=== PATIENT | female | born 1950 | race Caucasian/White ===

== ENCOUNTER 2025-03-18 16:19 | Emergency (ER) | payer MEDICARE, SELFPAY ==
--- NOTE | ~2025-03-18 | XR_ITS ---
HISTORY: injury foot/ankle, lateral pain COMPARISON: None TECHNIQUE: 3 views of the right foot were performed FINDINGS: Nondisplaced fracture of the base of the fifth metatarsal. Overlying soft tissue swelling is noted. Trace degenerative disease is noted. No calcaneal spur is noted. IMPRESSION: Nondisplaced fracture of the base of the fifth metatarsal is suspected for which clinica l correlation regarding point tenderness is needed. Reviewed, dictated and finalized at location A. IMPRESSION: Nondisplaced fracture of the base of the fifth metatarsal is suspe cted for which clinical correlation regarding point tenderness is needed.
[2025-03-18 16:20] VITALS: BP 116/72; PULSE 69; RESP 16; TEMP 36.6; O2SAT 98
--- OUTSIDE RECORDS SUMMARY | 2025-03-18 16:21 | XMS_ITS | Clinical Summary ---
Author Organization [facility] Address [address] [place] [address] Care Team Providers Care Adjunct Latin Professor Name Role Phone Chelle Vela MD Primary Care Pr ovider Allergies Active Allergy Reactions Criticality Noted Date Comments Hydrocodone-Acetaminophen Nausea and Vomiting Low 1 Oxycodone-Acetaminophen Nausea and Vomiting Low 04/2021 Medications calcium carbonate/vitam in D3 (CALCIUM 500 + D ORAL) calcium Active Multivitamin Capsule multivitamin Active cholecalciferol , vitamin D3, 1,000 unit Take 1,000 Units by mouth daily. 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 Encounters Date Type Department Care Team Description 03/03/2025 7:45 AM CDT Procedure visit [facility] AT [address] [place] [address] Syncope, unspecified syncope type (Primary Dx); Presence of cardiac device 02/15/2025 External Device Data STL ABSTRACTION Provider, Abstract 01/31/2025 9:15 AM CDT Procedure visit [facility] AT [address] [place] [address] Syncope, unspecified syncope type (Primary Dx); Presence of cardiac device 12/31/2024 7:45 AM CDT Procedure visit [facility] AT [address] [place] [address] Syncope, unspecified syncope type (Primary Dx); Presence of cardiac device from Last 3 Months Family History Medical History Relation Name Comments Dementia Mother Pacemaker Mother Dementia Sister 1 Ovarian Cancer Sister 2 Parkinson's Disease Sister 3 Relation Name Status Comments Father (Age 30) accident Mother (Age 83) Sister 1 (Age 73) demetia Sister 2 Alive Sister 3 Alive Social History Tobacco Use Types Packs/Day Years Used Date Smoking Tobacco: Former Cigarettes 0.5 5 1 975 - 8436 Tobacco Cessation:Counseling Given: Not Answered Alcohol Use Standard Drinks/Week Comments Yes 14 (1 standard drink = 0.6 oz pu re alcohol) Comments Unknown Sex and Gender Information Value Date Recorded Sex Assigned at Not on file Legal Sex Female 1:22 PM CDT Gender Identity Not on file Sexual Orientation Not on file Last Filed Vital Signs Vital Sign Reading Time Taken Comments Blood Pressure 112/64 10/22/2024 9:13 AM FIELD APPLICATIONS SPECIALIST Pulse 76 10/22/2024 9:13 AM FIELD APPLICATIONS SPECIALIST Temperature 36.3 C (97.3 F) 11/09/2021 9:45 AM FIELD APPLICATIONS SPECIALIST Respiratory Rate - - Oxygen Saturation 99% 10/22/2024 9:13 AM FIELD APPLICATIONS SPECIALIST Inhaled Oxygen Concentration - - Weight 59 kg (130 lb) 10/22/2024 9:13 AM FIELD APPLICATIONS SPECIALIST Height 168.9 cm (5' 6.5) 10/22/2024 9:13 AM FIELD APPLICATIONS SPECIALIST Body Mass Index 20.67 10/22/2024 9:13 AM FIELD APPLICATIONS SPECIALIST Plan of Treatment Upcoming Encounters Date Type Department Care Team (Late st Contact Info) Description 04/03/2025 8:00 AM CDT Procedure visit [facility] AT [address] [place] [address] 05/04/2025 7:15 AM CDT Procedure visit [facility] AT [address] [place] [address] 10/28/2025 9:30 AM FIELD APPLICATIONS SPECIALIST Office Visit [facility] [address] [place] [id number] El Yañez MD [address] [place] [address] Health Maintenance Due Date Last Done Comments FIT-DNA Q 3 years 1995 FIT/FOBT Q 1 year 1995 Flex Sig/CT Colonography Q 5 years 1995 PNEUMOCOCCAL VACCINE 50+ YEA RS (1 of 1 - PCV) 2000 ZOSTER VACCINE (1 of 2) 2000 INFLUENZA VACCINE (#1) 2025 07/06/2019, 2017 BREAST CANCER SCREENING 05/10/2025 05/10/20, 05/10/2024, 05/09/2023, Additional history exists RSV VACCINE (60+ or ) (1 - 1-dose 75+ series) 2025 DTAP/TDAP/TD VACCINES (2 - T d or Tdap) 10/12/2027 10/12/2017 OSTEOPOROSIS SCREENING 05/09/2028 , 05/09/2023, 03/08/2021 COLORECTAL SCREENING 06/25/2033 06/25/2023 Colorectal Cancer Screening 06/25/2033 Medical Devices Implanted Type Area Bulk Intake Worker Device Identifier Shelf Expiration Date Model / Serial / Lot Monitor Heart Linq Ii Icm Reveal Cardiac [id number] - [id number] Implanted:Qt y: 1 on 12/11/2021 by Alcon Vines MD at [facility] Cardiovascular Device Left: Chest MEDTRONIC- CARD RHYTHM MGMT 03/14/2023 [id number] / [id number] / Procedures Procedure Name Priority Date/Time Associated Diagnosis Comments WA REM INTERROG SCRMS <30 D PHYS/QHP Routine 03/03/2025 2:42 PM CDT Syncope, unspecified syncope type Presence of cardiac device WA REM INTERROG SCRMS <30 D PHYS/QHP Routine 01/31/2025 2:57 PM CDT Syncope, unspecified syncope type Presence of cardiac device WA REM INTERROG SCRMS <30 D PHYS/QHP Routine 12/31/2024 2:42 PM CDT Syncope, unspecified syncope type Presence of cardiac device from Last 3 Months Results * WA REM INTERROG SCRMS <30 D PHYS/QHP (03/03/2025 2:42 PM CDT) Only the most recent of3 resultswithin the time period is included. 03/03/2025 2:42 PM CDT Narrative INTERFACE SYSTEM - 03/04/2025 7:26 AM CDT Loop recorder Transmission: 31 day summary report: 01/31/2025 - 03/03/2025 Presenting Rhythm: Sinus Rhythm No episodes noted. Results sent via [employer] Procedure Note Provider, Historical - 03/04/2025 Loop recorder Transmission: 31 day summary report: 01/31/2025 - 03/03/2025 Presenting Rhythm: Sinus Rhythm No episodes noted. Results sent via [employer] us El Yañez MD CARDIAC SERVICES ORDERABLES E dited Result - Final INTERFACE SYSTEM Refer to clinic/hospital department from Last [address] [place] [id number] Advance Directives For more information, please contact: [phone] * Full Code (Latest Code Status on File) Date Activated Date Inactivated Comments 12/11/2021 1:25 PM 12/11/2021 5:00 PM Care Teams Adjunct Latin Professor Relationship Specialty Start Date End Date Chelle Vela MD [address] [place] [phone] PCP - General Family Practice 06/05/21
--- OUTSIDE RECORDS SUMMARY | 2025-03-18 16:21 | XMS_ITS | Data Portability ---
Author Organization [facility] Main Office Address [address] [place] [address] Care Team Providers Care Platen Press Operator Name Role Phone JOSH CORDOVA Primary Care Provider [phone] JOSH CORDOVA Referring Provider Assessment Encounter Date Assessment Date Assessment LastModified by Organization Details LastModified Time 04/04/2023 04/04/2023 Impression: Patient has evidence of trochanteric bursitis left hip and distal iliotibial band tendinitis at the knee. I recommended she make sure she is wearing shoes that have ample arch support to prevent over pronation with her longer walks. She does purchase well may choose but may wish to obtain a pair with that specific function mind or consider arch supports. I recommended a course of physical therapy for her for IT band stretching abductor strengthening and I at of her ESAs ultrasound sometimes be helpful. We talked about trying an anti-inflammator y medication to decrease inflammation and will prescribe meloxicam 15 mg daily for 30 days and then stop. She will avoid any additional anti-inflammator y medications while she is taking this. Risks of possible side effects were discussed inches skin is fracture she describing possible side effects of anti-inflammator y medication use. She has no history of kidney or liver or peptic ulcer disease. I have recommended give up the walking for exercise for the next 6 weeks to let this rest. If this fails to give her adequate relief 1 could also consider she use a heel lift under the slightly shorter right leg chronically which will tend to decrease tension on the iliotibial band. 45 minutes were spent total care this patient more than half the time spent in pqoc-fr-jxab care. [email or web address] Not available 04/05/2023 14:02:16 04/07/2023 04/07/2023 HPI: Patient returns. Her left index finger started triggering again. It started about a month ago. She had a cortisone injection 10 months ago which worked great up until 4 weeks ago. She wished to have a 2nd injection. She does not wish to discuss surgery yet. She has had 5 other trigger fingers released in her hands in the past. She is aware the surgery recovery. Physical exam: 72-year-old female alert pleasant. She has moderate tenderness over the A1 christo of the left index finger. She has mild triggering with range of motion. She has full extension of the finger. ChloraPrep was used on skin 5 mg Kenalog and 1 cc of 0.5% ropivacaine was injected into the A1 christo of the left index finger. Impression: 72-year-old female who has had recurrence of her left index trigger finger. She has had 2 shots now advised her that if she has recurrence of the triggering surgery room would be next step. Multiple injections can cause softening of tendon And tendon rupture. She will keep that in mind. She will follow up as needed. [email or web address] Not available 04/07/2023 15:21:56 Plan of Treatment Reminders Order Date Submit Date Provider Last Modified By Organization Details Last Modified Time Details Appointments None recorded. Lab None recorded. Referral physical therapist referral 2022 023 [email or web address] Not available 16:32:50 Procedures injection/a spiration joint/bursa (PROC) - in office procedure, administere d by provider 2022 023 [email or web address] In-Office Order, Internal Use Only DO Not Attach Compendium DO Not Attach Compendium, Do Not Delete/merge, [id number] 14:57:20 Surgeries None recorded. Imaging XR, knee 2022 023 [email or web address] [facility] [place], [address], [place], [address], 3 09:35:41 XR, hip + pelvis, unilateral 2022 023 [email or web address] [facility] [place], [address], [place], [address], 3 09:35:41 Medication Orders Kenalog 10 mg/mL suspension for injection [address]/[facility]armacy #[id number], [address] [place] [address], [address], 3 16:44:49 ropivacaine (PF) 5 mg/mL (0.5 %) injection solution [address]/[facility]acy #[id number], [address] [place] [address], [address], 3 16:44:49 meloxicam 15 mg tablet [address]/Pharmacy #[id number], [address] [place] [address], [address], 3 11:30:58 Patient TargetsNo targets recorded. Patient InstructionsNo instructions recorded. Reason for Referral Physical Therapist Referral for Pain of left knee joint Referring Physician: Stanislaw Be, Orthopedic Surgery, Encounter Date: 04/04/2023 Results Created Date Observation Date Name Description Value Unit Range Abnormal Flag Note LastModifiedBy Organization Detail LastModifiedTime 07/23/[address] wrist wo contr ast left [facility] [address] [address] [phone] Patien t Name: PINO GERONIMO Access ion #: [id number] Sex: F : 1949 9 8 Locati on: RA2 Attend ing Physic carmen: STANISLAW FERNANDO Orderi ng Physic carmen: STANISLAW FERNANDO Exam Date: 021 3:32 PM Exam Name: CT WRIST LT WO Admitt ing Diagno sis(es ): RADIOL OGY REPORT - FINAL EXAM: CT WRIST LT WO HISTOR Y: pain follow -up fractu re COMPAR CONCEPCION: Wrist radiog raphs 2020 and MRI of the wrist dated 2020 TECHNI QUE: Multip le contig uous thin sectio n axial images of the wrist were obtain ed with rush l and sagitt al reform ations . No contra st was utiliz ed. This CT exam was perfor med using one or more of the follow ing dose reduct ion techni ques: Automa ko exposu re contro l, adjust ment of the mA and/or kv accord ing to patien t size, or the use of iterat renetta recons tructi on techni ques. FINDIN GS: No displa jazmín fractu re is noted. There is some cortic al irregu larity noted at the radial aspect of the scapho id with a small bhanu of bone. No displa jazmín Page 1 of 2 [facility] Pati t Name: PINO GERONIMO Access ion #: [id number] Sex: F : 1949 9 8 Exam Date: 3:32 PM Exam Name: CT WRIST LT WO Admitt ing Diagno sis(es ): fractu re is noted. The remain issac of the wrist appear s intact . IMPRES SONNY: As detail ed above. Create d and electr onical ly signed by: Johnny Trejo ch, DO Signed Date: 4:15 PM (CT) Dictat ed by: Johnny Trejo ch, DO DD: 4:15 PM (CT) DT: 4:15 PM (CT) Page 2 of 2 MIG[facility]. [facility] (Imaging) [address], [place], [address], 11/13/2022 13:31:22 07/25/20 21 XR, wrist No observ ation record ed. MIGRATION. [facility] [place] [address], [place], [address], 11/13/2022 13:31:22 09/05/20 21 XR, wrist No observ ation record ed. [email or web address]. [id number] [facility] [place] [address], [place], [address], 11/13/2022 13:31:22 05/10/20 22 05/10/2022 XR, hand No observ ation record ed. [id number] [facility] [place] [address], [place], [address], 11/13/2022 13:31:22 04/04/20 23 XR, knee No observ ation record ed. [email or web address] [facility] [place] [address], [place], [address], 04/05/2023 13:58:14 04/04/20 23 XR, hip + pelvi s, unila teral No observ ation record ed. [email or web address] [facility] [place] [address], [address], 04/05/2023 13:59:36 Result Notes None recorded. Problems Name Problem SNOMED Code Status Onset Date Resolution Date Notes Provider Name and Address Organization Details Recorded Time Pain of left hand 317401135897627 Active 2021 Not Available [facility] 3 13:29:37 Pain of right knee joint 938925805849751 Active 2021 Not Available [facility] 3 13:29:37 Pain of left knee joint 472929925509802 Active 2022 DAKOTA Bolanos null, [place] [facility] 3 08:55:04 Problem Notes None recorded. Procedures Surgical History Date Name Laterality Status Provider Name and Address Organization Details Recorded Time Carpal tunnel surgery completed Not Available [facility] 11/13/2022 13:29:18 procedure on finger completed Not Available [facility] 11/13/2022 13:29:18 section completed Not Available [facility] 11/13/2022 13:29:18 Imaging Results None recorded. Procedure Notes None recorded. Medical Equipment None Reported. Medications Name Sig Start Date Stop Date Status Note LastModified by Organization Details LastModified Time ketoconazol e 2 % shampoo APPLY TO AFFECTED AREA 2 3 TIMES WEEKLY 03/28 completed Not Available Not Available Not Available meloxicam 15 mg tablet TAKE 1 TABLET BY MOUTH EVERY DAY active Not Available Not Available No t Available prednisone 20 mg tablet TAKE 1 TABLET BY MOUTH EVERY DAY FOR 5 DAYS 03/28 completed Not Available Not Available Not Available acyclovir 400 mg tablet TAKE 1 TABLET BY MOUTH THREE TIMES A DAY FOR 7 DAYS 03/28 completed Not Available Not Available Not Available citalopram 20 mg tablet TAKE 1/2 TABLET BY MOUTH DAILY active Not Available Not Available No t Available Kenalog 10 mg/mL suspension for injection in office 2022 active [facility]NOTE 2]: 0003- 0494- 20 Not Available Not Available Not Available meclizine 25 mg tablet TAKE ONE TABLET BY MOUTH EVERY 8 HOURS NEEDED FOR DIZZINESS . 03/28 completed Not Available Not Available Not Available cephalexin 500 mg capsule TAKE 1 CAPSULE BY MOUTH 3 TIMES A DAY FOR 7 DAYS 03/28 completed Not Available Not Available Not Available acyclovir 5 % topical ointment active Not Available Not Available Not Available clobetasol 0.05 % topical ointment APPLY TOPICALLY TO THE AFFECTED AREA TWICE A DAY FOR 14 DAYS active Not Available Not Available No t Available methylpredn isolone 4 mg tablets in a dose pack TAKE 6 TABLETS ON DAY 1 DIRECTED ON PACKAGE AND DECREASE BY 1 TAB EACH DAY FOR A TOTAL OF 6 DAYS 04/04 completed Not Available Not Available Not Available amoxicillin 875 mg-potassiu m clavulanate 125 mg tablet 03/28 completed Not Available Not Available Not Available acyclovir 5 % topical cream 03/28 completed Not Available Not Available Not Available ibandronate 150 mg tablet 09/05 completed Not Available Not Available Not Available chlorhexidi ne gluconate 0.12 % mouthwash RINSE AND GARGLE 15 ML BY MOUTH OR THROAT TWICE DAILY FOR 14 DAYS DIRECTED 05/16 completed Not Available Not Available Not Available Vitamin C 2020 active Not Available Not Available Not Avai lable calcium 2020 active Not Available Not Available Not Avai lable multivitami n 2020 active Not Available Not Available Not Avai lable ropivacaine (PF) 5 mg/mL (0.5 %) injection solution in office 2022 active [facility] [place]NOTE 2] [address] -064- 01 Not Available Not Available Not Available Vitals Date Recorded Body height Provider Name an d Address Organization Details Last Updated DateTime 04/04/2023 165.1 cm DAKOTA Bolanos [facility] 04/04/2023 08:53:43 Date Recorded Body height Provider Name an d Address Organization Details Last Updated DateTime 04/07/2023 165.1 cm Christi Murphy [facility] 04/07/2023 14:54:59 Date Recorded Body mass index (BMI) Body height Body weight Provider Name and Address Organization Details Last Updated DateTime 05/10/2022 21.1 kg/m2 165.1 cm 80901.23 g Not Available [facility] 11/13/2022 13:29:23 Date Recorded Body height Provider Name an d Address Organization Details Last Updated DateTime 07/25/2021 165.1 cm Not Available [facility] 13:29:23 Date Recorded Body height Provider Name an d Address Organization Details Last Updated DateTime 09/05/2021 165.1 cm Not Available [facility] 13:29:23 Social History Question Answer Notes LastModified by [employer] Details LastModified Time Tobacco Smoking Status Never Smoker Not Available [facility] 11/13/2022 13:29:16 How Much Tobacco Do You Smoke? No [id number] Information not available 11/13/2022 Sex: Unknown Functional Status Question Answer Note LastModified by [employer] Details LastModified Time What is your level of alcohol consumption? None [id number] Information not available 11/13/2022 Mental Status None recorded. Family History Nothing Reported. Medical History No medical history recorded. Gynecological HistoryNo gynecological history recorded. Obstetrics History GPAL:G 0 P 0 0 0 0 Past Encounters Encounter ID Performer Location Encounter Start Date Encounter Closed Date Diagnosis/Indication Diagnosis SNOMED-CT Code Diagnosis ICD10 Code Diagnosis Note [id number] Stanislaw Be MD [facility] [place] [address] [place] [address] 03/28/2021 00:00:00 04/01/2021 15:28:02 [id number] Stanislaw Be MD [facility] [place] [address] [place] [address] 04/11/2021 00:00:00 04/16/2021 11:59:06 [id number] Stanislaw Be MD [facility] [place] [address] [place] [address] 05/16/2021 00:00:00 05/16/2021 14:46:15 [id number] MD DIEGO [facility] [place] [address] [place] [address] 06/11/2021 00:00:00 06/11/2021 16:53:31 [id number] MD DIEGO [facility] [place] [address] [place] [address] 06/25/2021 00:00:00 06/25/2021 15:59:46 [id number] MD DIEGO [facility] [place] [address] [place] [address] 07/25/2021 00:00:00 07/25/2021 09:36:23 [id number] MD BECCA [facility] [place] [address] [place] [address] 09/05/2021 00:00:00 09/05/2021 08:58:43 [id number] Stanislaw Be MD [facility] [place] [address] [place] [address] 05/10/2022 00:00:00 05/13/2022 13:31:50 [id number] MD BECCA [facility] [place] [address] [place] [address] 04/04/2023 08:39:40 04/07/2023 09:35:40 Pain of left knee joint 7483696224 68676 M25.562 [id number] Stanislaw Be MD [facility] [place] [address] [facility] [address] [place] [address] 04/07/2023 14:43:50 04/07/2023 15:29:21 Pain of left hand 0434588019 68071 M79.642 Health Concerns Section Related Observation LastModified by Organization Detai ls LastModified Time None Recorded Concern Status LastModified by Organization Details LastModified Time None Recorded Advance Directives Directive None Recorded Payers Insurance Date Sequence Insurance Name Policy Number Policy Lopez Covered Member ID Lopez Member ID Guarantor Name 04/10/[address] [facility] (MEDICARE REPLACEMENT/ ADVANTAGE - PPO) [id number] Debo Aleman [id number] Debo Aleman 04/04/2023 1 [employer] (MEDICARE REPLACEMENT/ ADVANTAGE - PPO) [id number] Debo Aleman [id number] Debo Aleman Notes Date Note Type Note Provider Name and Address Organization Details Recorded Time 04/04/2023 text/html patient is a 72-year-old female referred by Dr. Hudson again for evaluation of her left knee pain. Both knees actually bother her but the left is worse. She started having problems approximately 6 months ago. She complains of primarily pain laterally and anteriorly. It bothers her standing up from a seated position going up and down stairs and walking. She has tried Advil and Voltaren gel and icy Hot. Occasionally she will limp. She recalls she was in an exercise class squeezing a squeeze ball between her knees and she heard a pop in the right knee. She limb for a few days and was using her left knee to do mostly work and then she developed spontaneous pain the anterolateral aspect of the left knee. This seemed to radiate up the thigh to the anterior groin with longer walks. She complains of left knee sharp all night particularly if she walks a longer distance. She would like to walk 3 miles a day to stay fit and keep her hemoglobin A1c numbers perfect. She walks 2 miles every other day. She denies any numbness or tingling. Stanislaw Be MD [address] [place] [address], [facility] [address], [place], [address], [place] [facility] 04/05/2023 14:02:42 OBGyn Episode No OBEpisode recorded.
--- OUTSIDE RECORDS SUMMARY | 2025-03-18 16:21 | XMS_ITS | Clinical Summary ---
Author Organization [facility] Address [address] [place] [address] Care Team Providers Care Automotive Service Management Teacher Name Role Phone Chelle Jacobson MD Primary Care Provider [phone] Source Comments [facility],non-owned Affiliates and Associated Physician Practices is amultiple site organization consisting of ambulatory clinics and hospital sitesin [place], [place], [place] and [place]. This disclosure is being madepursuant to the Care Everywhere program and may not contain all information available regarding this patient. Last updated 18.[facility] Allergies No known active allergies Medications * Be aware that medications may not be up to date on this document. Alwaysverify current medications with the patient. citalopram (CELEXA) 10 MG tablet Take 10 mg by mouth once daily Active ibandronate (BONIVA) 150 MG tablet Take 150 mg by mouth every 30 days Active Social History Tobacco Use Types Packs/Day Years Used Date Smoking Tobacco: Never Smokeless Tobacco: Never Alcohol Use Standard Drinks/Week Comments Yes 0 (1 standard drink = 0.6 oz pur e alcohol) Comments Unknown Sex and Gender Information Value Date Recorded Sex Assigned at Not on file Legal Sex Female 9:12 AM CDT Gender Identity Not on file Sexual Orientation Not on file Last Filed Vital Signs Vital Sign Reading Time Taken Comments Blood Pressure 141/80 04/17/2021 12:56 PM CDT Pulse 67 04/17/2021 12:56 PM CDT Temperature - - Respiratory Rate - - Oxygen Saturation - - Inhaled Oxygen Concentration - - Weight 57.9 kg (127 lb 9.6 oz) 04/17/2021 12:56 PM CDT Height 167.6 cm (5' 6) 04/17/2021 12:56 PM CDT Body Mass Index 20.6 04/17/2021 12:56 PM CDT Plan of Treatment Health Maintenance Due Date Last Done Comments BONE DENSITY TESTING 1950 COLOGUARD (AGES 45-75) - COL ON CA SCREENING 1950 COLON MONITORING 1950 COLONOSCOPY - COLON CA SCREENING 1950 CT COLONOGRAPHY - COLON CA SCREENING 1950 Colorectal Cancer Screening 1950 FIT - COLON CA SCREENING 1950 FLEX SIG - COLON CA SCREENING 1950 LIPID TESTING 1950 MAMMOGRAM 1950 HEPATITIS C SCREENING 05/09/1968 DTAP/TDAP/TD VACCINES (1 - Tdap) 1969 PNEUMOCOCCAL VACCINE 50+ (1 of 1 - PCV) 2000 ZOSTER VACCINE (1 of 2) 2000 COVID-19 VACCINE (1 - 2023-2 5 season) 2024 DEPRESSION SCREENING 09/15/2024 Respiratory Syncytial Virus (RSV) Vaccine Pt: or over 60 yrs (1 - 1-dose 75+ series) 2025 INFLUENZA VACCINE (Season Ended) 2025 HEPATITIS B VACCINE Aged Out No longe r eligible based on patient's age to complete this topic HIB VACCINE Aged Out No longer eligi ble based on patient's age to complete this topic HPV VACCINE Aged Out No longer eligi ble based on patient's age to complete this topic MENINGOCOCCAL (Group B) VACC INE SHARED DECISION-MAKING Aged Out No longer eligibl e based on patient's age to complete this topic MENINGOCOCCAL GROUPS A/C/Y/W VACCINE Aged Out No longer eligible b ased on patient's age to complete this topic Insurance [employer] Care Teams Automotive Service Management Teacher Relationship Specialty Start Date End Date Chelle Jacobson MD [address] [place] [address] [phone] PCP - General 03/20/21
--- OUTSIDE RECORDS SUMMARY | 2025-03-18 16:21 | XMS_ITS | Encounter Summary ---
Author Organization [facility] Address [address] [place] [address] Care Team Providers Care Policy Adviser Name Role Phone Morgan Mejia MD Primary Care Provider [phone] Chelle Vela MD Primary Care Provider + Encounter Details Date Type Department Care Team (Late st Contact Info) Description 07/08/2018 Abstract [facility] CONVERSION [address] [place] [address] , Generic Conversion, Social History Tobacco Use Types Packs/Day Years Used Date Smoking Tobacco: Former Comments Unknown Sex and Gender Information Value Date Recorded Sex Assigned at Not on file Legal Sex Female 11:55 PM CDT Gender Identity Not on file Sexual Orientation Not on file documented as of this encounter Plan of Treatment Not on file documented as of this encounter Visit Diagnoses Not on filedocumented in this encounter Additional Health Concerns Infection Onset Date Last Indicated Resolved Time C. difficile 04/27/2024 05/22/2024 documented as of this encounter Care Teams Policy Adviser Relationship Specialty Start Date End Date Morgan Mejia MD [id number] [place] [address] PCP - General 04/24/12 03/07/21 Chelle Vela MD [address] [place] [address] PCP - General FAMILY PRACTICE 03/08/21 documented as of this encounter
--- OUTSIDE RECORDS SUMMARY | 2025-03-18 16:22 | XMS_ITS | Clinical Summary ---
Author Organization [facility] Address [address] [place] [id number] Care Team Providers Care Facility Designer Name Role Phone Chelle Vela MD Primary Care Provider + Allergies No known active allergies Medications Cholecalciferol (VITAMIN D) 1000 UNIT tablet Take 1 tablet (1,000 Units total) by mouth daily. 07/15/2018 Active ibandronate 150 MG tablet Take 150 mg by mouth every 30 (thirty) days. 3 09/17/2018 Active Multiple Vitamin (MULTI-VITAMIN) tablet Take 1 tablet by mouth daily. 12/02/2012 Active pyridoxine 100 MG tablet Take 100 mg by mouth daily. 07/15/2018 Active citalopram 20 MG tablet Take 0.5 tablets (10 mg total) by mouth daily. 03/27/2021 Active Active Problems Problem Noted Date Diagnosed Date Pain of left hip 04/15/2023 Internal hemorrhoids 11/02/2018 Sigmoid diverticulum 11/02/2018 Family history of colon canc er requiring screening colonoscopy 10/12/2018 Overview (10/12/2018): in sister History of colonic polyps 09/15/2016 Overview (10/12/2018): Personal history of colonic polyps Carpal tunnel syndrome 10/05/2015 Depressed Syncope Vaso vagal episode Encounters Date Type Department Care Team Description 12/22/2024 Patient Self-Triage [facility] DEFAULT [facility] Provider from Last 3 Months Immunizations Immunization Administration Dates Next Due Fluzone High Dose - >Age 65 (Prefilled Syringe) 07/06/2019,07/05/2018 Influenza Adult (Generic) 06/20/2020 Tdap (Boostrix) 10/12/2017 Family History Medical History Relation Comments Breast Cancer Neg Hx Social History Tobacco Use Types Packs/Day Years Used Date Smoking Tobacco: Former Smokeless Tobacco: Never Tobacco Cessation:Counseling Given: Not Answered Alcohol Use Standard Drinks/Week Comments Yes 0 (1 standard drink = 0.6 oz pur e alcohol) socially AUDIT-C Answer Date Recorded Frequency of Alcohol Consumption 4 or more times a week 10/12/2018 Average Number of Drinks Not on file 019 Frequency of Binge Drinking Not on file 09/16 Comments No Sex and Gender Information Value Date Recorded Sex Assigned at Not on file Legal Sex Female 11:55 PM CDT Gender Identity Not on file Sexual Orientation Not on file Last Filed Vital Signs Vital Sign Reading Time Taken Comments Blood Pressure 135/77 06/25/2023 9:30 AM CDT Pulse 75 06/25/2023 7:24 AM CDT Temperature 37.3 C (99.2 F) 06/25/2023 7:24 AM CDT Respiratory Rate 18 06/25/2023 7:24 AM CDT Oxygen Saturation 99% 06/25/2023 9:30 AM CDT Inhaled Oxygen Concentration - - Weight 56.7 kg (125 lb) 06/23/2023 8:43 AM CDT Height 167.6 cm (5' 6) 06/23/2023 8:43 AM CDT Body Mass Index 20.18 06/23/2023 8:43 AM CDT Plan of Treatment Health Maintenance Due Date Last Done Comments Pneumococcal Vaccine: 50+ Years (1 of 1 - PCV) 2000 Zoster Vaccines (1 of 2) 2000 Annual Medicare Wellness Visit 2015 COVID-19 Vaccine ( - season) 2024 RSV Immunization or 60+ Years (1 - 1-dose 75+ series) 2025 Mammogram Screening 05/10/2026 05/10/2024, 05/09/2023, 03/08/2021, Additional history exists DTaP, Tdap and Td Vaccines (2 - Td or Tdap) 10/12/2027 10/12/2017 Colorectal Cancer Screening Colonoscopy (10 Years) 06/25/2033 06/25/2023 Hepatitis C Completed 07/08/2018 Dexa Scan (General) Completed 05/09/2023, 05/09/2023, 03/08/2021 Meningococcal B Vaccine Aged Out No l onger eligible based on patient's age to complete this topic Meningococcal Vaccine Aged Out No xenia donovan eligible based on patient's age to complete this topic RSV Immunizations Under 20 Months Aged Out No longer eligible based on patient's age to complete this topic Procedures Procedure Name Priority Date/Time Associated Diagnosis Comments HEALTH FAIR WITH LIPID Routine 01/11/2025 12:01 AM CDT HEMOGLOBIN, GLYCOSYLATED Routine 01/11/2025 12:01 AM CDT MG SCREENING W SHAMIR RAYA DIGI Routine 05/10/2024 8:14 AM CDT Visit for screening mammogram BONE DENSITY/DEXA Routine 05/09/2023 1:0 2 PM CDT Osteoporosis HEPATITIS PANEL,ACUTE Routine 07/08/2018 7:18 AM CDT from Last 3 Months or Most Recently Relevant to Health Maintenance Results * (ABNORMAL) HEALTH FAIR WITH LIPID (01/11/2025 12:01 AM CDT) WBC 5.75 4.4 - 11.0 x10'3/uL 01/11/2025 7:17 AM CDT [facility] RBC 4.49(L) 4.50 - 5.10 x10'6/uL 01/11/2025 7:17 AM CDT [facility] HGB 13.9 12.3 - 15.3 G/DL 01/11/2025 7:17 AM CDT [facility] HCT 40.8 35.9 - 44.6 % 01/11/2025 7:17 AM CDT [facility] MCV 90.9 80.0 - 96.0 FL 01/11/2025 7:17 AM CDT [facility] MCH 31.0(H) 25.3 - 30.9 PG 01/11/2025 7:17 AM CDT [facility] MCHC 34.1 31.0 - 34.1 G/DL 01/11/2025 7:17 AM CDT [facility] RDW 12.8 12.4 - 15.1 % 01/11/2025 7:17 AM CDT [facility] PLT 240 151 - 353 x10'3/uL 01/11/2025 7:17 AM T [facility] MPV 9.6 9.6 - 12.0 FL 01/11/2025 7:17 AM T [facility] RBC MORPHOLOGY NORMAL 01/11/2025 7:17 AM T [facility] PLT MORPH. NORMAL 01/11/2025 7:17 AM T [facility] WBC MORPHOLOGY NORMAL 01/11/2025 7:17 AM T [facility] LYMPHOCYTES % 41.7 15.8 - 45.0 % 01/11/2025 7:17 AM T [facility] NEUTROPHILS % 41.1(L) 42.1 - 71.9 % 01/11/2025 7:17 AM CDT [facility] MONOCYTES % 10.4 5.7 - 12.5 % 01/11/2025 7:17 AM T [facility] EOSINOPHILS 5.9(H) 0.0 - 5.6 % 01/11/2025 7:17 AM CDT [facility] BASOPHILS 0.7 0.0 - 1.3 % 01/11/2025 7:17 AM CDT [facility] ABS. NEUTROPHILS 2.36 1.40 - 6.00 x10'3/uL 01/11/2025 7:17 AM [facility] IMMATURE GRANS % 0.2 0.0 - 0.5 % 01/11/2025 7:17 AM [facility] ABS. LYMPHOCYTES 2.40 0.80 - 4.70 x10'3/uL 01/11/2025 7:17 AM [facility] GLUCOSE 100(H) 70 - 99 MG/DL 01/11/2025 8:15 AM [facility] BUN 17 7 - 18 MG/DL 01/11/2025 8:15 AM [facility] CREATININE S/P/B 0.65 0.55 - 1.02 MG/DL 01/11/2025 8:15 AM [facility] SODIUM S/P/B 138 136 - 145 MMOL/L 01/11/2025 8:15 AM [facility] POTASSIUM S/P/B 4.6 3.5 - 5.1 MMOL/L 01/11/2025 8:15 AM [facility] CHLORIDE S/P/B 101 100 - 108 MMOL/L 01/11/2025 8:15 AM [facility] CO2 31.2 21 - 32 MMOL/L 01/11/2025 8:15 AM [facility] CALCIUM S/P/B 9.2 8.5 - 10.1 MG/DL 01/11/2025 8:15 AM [facility] BILIRUBIN TOTAL S/P/B 0.7 0.2 - 1.2 MG/DL 01/11/2025 8:15 AM [facility] TOTAL PROTEIN S/P/B 6.6 6.4 - 8.2 G/DL 01/11/2025 8:15 AM [facility] ALBUMIN S/P/B 3.9 3.4 - 5.0 G/DL 01/11/2025 8:15 AM [facility] AST 20 15 - 37 U/L 01/11/2025 8:15 AM [facility] ALT 26 14 - 55 U/L 01/11/2025 8:15 AM [facility] ALKALINE PHOSPHATASE S/P/B 64 50 - 136 U/L 01/11/2025 8:15 AM [facility] ANION GAP 5.8 5 - 15 MMOL/L 01/11/2025 8:15 AM [facility] BUN CREATININE RATIO 26.2(H) 6 - 26 01/11/2025 8:15 AM [facility] A/G RATIO 1.4 1.0 - 2.0 RATIO 01/11/2025 8:15 AM [facility] GFR ESTIMATE >90 >90 ML/MIN/1. 73 M2 01/11/2025 8:15 AM [facility] Comment: NOTE: eGFR is not calculated for patients <18 years of age. This is an estimated GFR calculation using the new CKD EPI creatinine equation without race and so does not require a correction factor for race. This estimated GFR should not be used for calculating drug doses. TSH 1.126 0.358 - 3.74 uIU/ML 01/11/2025 8:15 AM [facility] Comment: HIGH DOSES OF BIOTIN MAY INTERFERE WITH THIS TEST RESULT. CORRELATION TO CLINICAL HISTORY AND PRESENTATION RECOMMENDED. CHOLESTEROL 211(H) <200.0 MG/DL 01/11/2025 8:15 AM [facility] TRIGLYCERIDES 45 <150 MG/DL 01/11/2025 8:15 AM [facility] HDL 83 >40.0 MG/DL 01/11/2025 8:15 AM [facility] LDL (CALCULATED) 119(H) <100 MG/DL 01/11/2025 8:15 AM CDT [facility] NON HDL CHOLESTEROL 128 <130 MG/DL 01/11/2025 8:15 AM CDT [facility] CHOL/HDL RATIO 2.5 0.0 - 4.5 01/11/2025 8:15 AM CDT [facility] VLDL CALCULATION 9 5 - 55 MG/DL 01/11/2025 8:15 AM CDT [facility] LIPID INTERPRETATION 01/11/2025 8:15 AM CDT [facility] Comment: NIH CONCENSUS REPORT RECOMMENDATIONS: ADULT CHILD LOW RISK: CHOLESTEROL <200 <170 TRIGLYCERIDE <150 --- HDL >=60 --- LDL <100 <110 BORDERLINE: CHOLESTEROL 200-239 170-199 TRIGLYCERIDE 150-199 --- HDL 40-59 --- LDL 100-159 110-129 HIGH RISK: CHOLESTEROL >=240 >=200 TRIGLYCERIDE >=200 --- HDL <40 --- LDL >=160 >=130 01/11/2025 12:0 1 AM CDT Sunny Yepez MD LABORATORY Final Result [facility] [address] [place] [address], * HEMOGLOBIN, GLYCOSYLATED (01/11/2025 12:01 AM CDT) HGB A1C 5.5 <5.7 % 01/11/2025 8:06 AM CDT [facility] Comment: INCREASED RISK OF DIABETES <5.7% NON-DIABETES 5.7-6.4% INCREASED RISK FOR FUTURE DIABETES > OR = 6.5 CONSISTENT WITH DIABETES STANDARDS OF MEDICAL CARE IN DIABETES-2010 DIABETES CARE, 33(SUPP 1): S1-S61,2010 ESTIMATED AVG GLUCOSE 111 mg/dL 01/11/2025 8:06 AM CDT [facility] 01/11/2025 12:0 1 AM CDT Sunny Yepez MD LABORATORY Final Result [facility] [address] [place] [address], [place] [phone] * MG SCREENING W SHAMIR RAYA DIGI (05/10/2024 8:14 AM CDT) Anatomical Region Laterality Modality Breast Bilateral Mammography 05/10/2024 10:1 8 AM CDT Impressions 05/10/2024 10:23 AM CDT =====IMPRESSION:===== No mammographic findings suggestive of malignancy ASSESSMENT: ACR BI-RADS 2 - BENIGN FINDING(S) Recommendation: 1: Routine Screening Bilateral COMMENTS: Ordered By: CHELLE ALMAGUER Interpreted By: Germain Thurston MD, 05/10/2024 10:18 AM Narrative 05/10/2024 10:23 AM CDT EXAMINATION: Digital bilateral screening mammogram with 3-D tomosynthesis EXAM DATE/TIME: 05/10/2024 7:57 AM REASON FOR EXAM: SCREENING MAMMO COMPARISON: Priors including April 2023, February 2021, August 2019. TECHNIQUE: Digital screening mammography of both breasts was performed in addition to 3-D Tomosynthesis technique. This study was read with the assistance of a computer-aided detection system. TISSUE DENSITY: The breast tissue is heterogeneously dense, which may obscure small masses. FINDINGS: No suspicious masses, malignant appearing calcifications, skin thickening or other abnormalities are present. No significant change from the prior exam. Chelle Almageur MD MAMMO Final Re sult * BONE DENSITY/DEXA (05/09/2023 1:02 PM CDT) Anatomical Region Laterality Modality Bone Bone Density 05/28/2023 1:27 PM CDT Impressions 05/28/2023 1:29 PM CDT IMPRESSION: WHO Classification: osteopenia. FRAX Score: 2.1% chance of hip fracture and 9.9% chance of major osteoporotic fracture over the next 10 years The final report for your radiology exam was delayed due to a prolonged systemwide outage of the hospital information technology infrastructure. The necessary components to render a final report utilizing a secure and persistent connection to the hospital information technology infrastructure within the usual parameters as guided by current standards of care were significantly limited or unavailable. These components include but are not limited to: all images for the exam, medical grade display monitor, medical grade display software, image post-processing software, prior examinations, prior reports, access to your medical records, dictation software, and a DICOM signature to ensure validity. Ordered By: CHELLE ALMAGUER Interpreted By: Jeremy Jenkins MD, 05/28/2023 1:27 PM Narrative 05/28/2023 1:29 PM CDT Examination: Bone Density Axial Exam Date/Time: 05/09/2023 12:26 PM Reason For Exam: m81.0 Osteoporosis Comparison: None Findings: DEXA bone densitometry The bone mineral density (BMD) was determined by dual-energy x-ray absorptiometry, the results are as follows: AP Lumbar Spine L1 through L4 BMD Patient (GM/SQCM): 0.795 T-Score (Standard deviations from young adult peak bone density): -2.3 Left femoral neck: BMD Patient (GM/SQCM): 0.656 T-Score (Standard deviations from young adult peak bone density): -1.7 Total right femur: BMD Patient (GM/SQCM): 0.823 T-Score (Standard deviations from young adult peak bone density): -1.0 Procedure Note Jeremy Jenkins MD - 05/28/2023 Examination: Bone Density Axial Exam Date/Time: 05/09/2023 12:26 PM Reason For Exam: m81.0 Osteoporosis Comparison: None Findings: DEXA bone densitometry The bone mineral density (BMD) was determined bydual-energy x-ray absorptiometry, the results are as follows: AP Lumbar Spine L1 through L4 BMD Patient (GM/SQCM): 0.795 T-Score (Standard deviations from young adult peak bonedensity): -2.3 Left femoral neck: BMD Patient (GM/SQCM): 0.656 T-Score (Standard deviations from young adult peak bonedensity): -1.7 Total right femur: BMD Patient (GM/SQCM): 0.823 T-Score (Standard deviations from young adult peak bonedensity): -1.0 IMPRESSION: WHO Classification: osteopenia. FRAX Score: 2.1% chance of hip fracture and 9.9% chance of majorosteoporotic fracture over the next 10 years The final report for your radiology exam was delayed due to a prolongedsystemwide outage of the hospital information technology infrastructure.The necessary components to render a final report utilizing a secure andpersistent connection to the hospital information technologyinfrastructure within the usual parameters as guided by current standardsof care were significantly limited or unavailable. These componentsinclude but are not limited to: all images for the exam, medical gradedisplay monitor, medical grade display software, image post-processingsoftware, prior examinations, prior reports, access to your medicalrecords, dictation software, and a DICOM signature to ensure validity. Ordered By: CHELLE ALMAGUER Interpreted By: Jeremy Jenkins MD, 05/28/2023 1:27 PM Chelle Almaguer MD DEXA Final Re sult * HEPATITIS PANEL,ACUTE (07/08/2018 7:18 AM CDT) HEPATITIS B SURFACE AG NON-REACTI VE NON-REACTI VE 07/08/2018 3:32 PM CDT [facility] HEP B CORE TOTAL AB NON-REACTI VE NON-REACTI VE 07/08/2018 5:57 PM CDT [facility] HEP B SURFACE AB NON-REACTI VE 07/08/2018 5:57 PM CDT [facility] HAV IGM NON-REACTI VE NON-REACTI VE 07/08/2018 5:57 PM CDT [facility] HEPATITIS C AB NON-REACTI VE NON-REACTI VE 07/08/2018 5:57 PM CDT [facility] 07/08/2018 7:18 AM CDT 07/08/2018 8:24 AM CDT us Generic Conversion Md POP LABORATORY Final R esult [facility] [address] [place] [address], from Last 3 Months or Most Recently Relevant to Health Maintenance Additional Health Concerns Infection Onset Date Last Indicated C. difficile 04/27/2024 05/22/2024 Insurance [facility] Care Teams Facility Designer Relationship Specialty Start Date End Date Chelle Vela MD [address] [place] [id number] PCP - General FAMILY PRACTICE 03/08/21
--- NOTE | 2025-03-18 16:48 | ED_ITS ---
HPI - General Adult General Chief complaint: Extremity Injury, Lower Stated complaint: R foot injury Time Seen by Provider: 03/18/25 16:37 History of Present Illness HPI narrative: Patient 74-year-old female presents emergency department chief complaint of right foot pain patient states she was out watering plants slipped on some rocks and twisted her foot patient states that she has pain at the base the 5th metatarsal reports that hurts whenever she attempts to put weight on it Related Data Allergies Allergy/AdvReac Type Severity Reaction Status Date / Time No Known Allergies Allergy Mild NONE Verified 03/18/25 16:20 Review of Systems Review of Systems: A 10 system review of systems was completed on the patient and is negative except for what is stated in the HPI. Nursing and ancillary documentation was reviewed. Exam Narrative: GENERAL: Well-appearing, well-nourished, and in no acute distress. HEAD: Normocephalic, atraumatic. EYES: PERRLA and EOMI. ENT: Nares clear, no rhinorrhea or epistaxis. Mucous membranes moist. NECK: Supple. CHEST: Clear to auscultation. No respiratory distress. HEART: Regular rate and rhythm. No murmur heard. Normal peripheral pulses. ABDOMEN: Soft, nontender, nondistended, normal active bowel sounds. EXTREMITIES: Normal range of motion except for right foot there is tenderness to palpation at the base of the 5th metatarsal. No edema. SKIN: Warm, dry, no rash. NEURO: No focal deficits. Alert and oriented x3. PSYCH: Normal mood and affect. Course Vital Signs Vital signs: Vital Signs Temperature 36.6 C 03/18/25 16:20 Pulse Rate 69 03/18/25 16:20 Respiratory Rate 16 03/18/25 16:20 Blood Pressure 116/72 03/18/25 16:20 Pulse Oximetry 98 03/18/25 16:20 Oxygen Delivery Room Air 03/18/25 16:20 Temperature 36.6 C 03/18/25 16:20 Pulse Rate 69 03/18/25 16:20 Respiratory Rate 16 03/18/25 16:20 Blood Pressure 116/72 03/18/25 16:20 Pulse Oximetry 98 03/18/25 16:20 Oxygen Delivery Room Air 03/18/25 16:20 Medical Decision Making [facility] Narrative Medical decision making narrative: Differential diagnosis includes sprain, strain, fracture Plain film x-ray showed a nondisplaced fracture the base of the 5th metatarsal The patient will be placed in a short-leg posterior splint and will be referred to either Orthopedics or Podiatry Vital Signs Vital Signs: Vital Signs Temperature 36.6 C 03/18/25 16:20 Pulse Rate 69 03/18/25 16:20 Respiratory Rate 16 03/18/25 16:20 Blood Pressure 116/72 03/18/25 16:20 Pulse Oximetry 98 03/18/25 16:20 Oxygen Delivery Room Air 03/18/25 16:20 Temperature 36.6 C 03/18/25 16:20 Pulse Rate 69 03/18/25 16:20 Respiratory Rate 16 03/18/25 16:20 Blood Pressure 116/72 03/18/25 16:20 Pulse Oximetry 98 03/18/25 16:20 Oxygen Delivery Room Air 03/18/25 16:20 Discharge Plan Discharge Clinical Impression: Closed fracture of fifth metatarsal bone Qualifiers: Encounter type: initial encounter Fracture alignment: nondisplaced Laterality: right Qualified Code(s): S92.354A - Nondisplaced fracture of fifth metatarsal bone, right foot, initial encounter for closed fracture Patient Disposition: Home Condition: Stable Instructions: Antibiotic Form, Crutch Instructions (ED), Foot Fracture in Adults (ED) Additional Instructions: It is recommended that you follow-up with orthopedics or podiatry as soon as possible please limited to no weight-bearing of your right foot until you are cleared. You may take Tylenol or ibuprofen for the pain. Please rest elevate nice the extremity. Patient Language: Luxembourger Follow-up/Referrals: Sirisha Payne DPM [Physician] - Rafal Spangler MD [Physician] - PHYSICIAN NOT ON STAFF,NONSTAFF [Primary Care Provider] - Time of Disposition: 17:00
[2025-03-18] MEDS: IBUPROFEN 400 MG TABLET 800 MG PO (17:19)
--- OUTSIDE RECORDS SUMMARY | 2025-03-18 17:47 | XMS_ITS | Encounter Summary ---
Author Organization [facility] Address [address] [place] [address] Care Team Providers Care Saddle Lining Stitcher Name Role Phone Morgan Mejia MD Primary Care Provider Chelle Vela MD Primary Care Provider + Encounter Details Date Type Department Care Team (Late st Contact Info) Description 07/08/2018 Abstract [facility] CONVERSION [address] [place] [address] , Generic Conversion, Social History Tobacco Use [...] documented as of this encounter Care Teams Saddle Lining Stitcher Relationship Specialty Start Date End Date Morgan Mejia MD [id number] [place] [address] PCP - General 04/24/12 03/07/21 Chelle Vela MD [address] [place] [address] PCP - General FAMILY PRACTICE 03/08/21 documented as of this encounter
--- OUTSIDE RECORDS SUMMARY | 2025-03-18 17:47 | XMS_ITS | Clinical Summary ---
Author Organization [facility] Address [address] [place] [address] Care Team Providers Care General Activities Therapist Name Role Phone Chelle Jacobson MD Primary Care Provider [phone] Source Comments [facility],non-owned Affiliates and Associated Physician Practices is amultiple site organization consisting of ambulatory clinics and hospital sitesin [place], [place], [place] and [place]. This disclosure is being madepursuant to the Care Everywhere program and may not contain all information available regarding this patient. Last updated 18.[facility] Allergies No known active allergies Medications * [...] complete this topic Insurance [employer] Care Teams General Activities Therapist Relationship Specialty Start Date End Date Chelle Jacobson MD [address] [place] [phone] PCP - General 03/20/21
--- OUTSIDE RECORDS SUMMARY | 2025-03-18 17:47 | XMS_ITS | Clinical Summary ---
Author Organization [facility] Address [address] [place] [address] Care Team Providers Care Labor Relations Manager Name Role Phone Chelle Vela MD Primary [...] Department Care Team Description 12/22/2024 Patient Self-Triage [facility] DEFAULT [facility] Provider from Last 3 Months Immunizations Immunization [...] - 11.0 x10'3/uL 01/11/2025 7:17 AM CDT [facility] RBC 4.49(L) 4.50 - 5.10 x10'6/uL 01/11/2025 7:17 AM CDT [facility] HGB 13.9 12.3 - 15.3 G/DL 01/11/2025 7:17 AM CDT [facility] HCT 40.8 35.9 - 44.6 % 01/11/2025 7:17 AM CDT [facility] MCV 90.9 80.0 - 96.0 FL 01/11/2025 7:17 AM CDT [facility] MCH 31.0(H) 25.3 - 30.9 PG 01/11/2025 7:17 AM CDT [facility] MCHC 34.1 31.0 - 34.1 G/DL 01/11/2025 7:17 AM CDT [facility] RDW 12.8 12.4 - 15.1 % 01/11/2025 7:17 AM CDT [facility] PLT 240 151 - 353 x10'3/uL 01/11/2025 7:17 AM T [facility] MPV 9.6 9.6 - 12.0 FL 01/11/2025 7:17 AM T [facility] RBC MORPHOLOGY NORMAL 01/11/2025 7:17 AM T [facility] PLT MORPH. NORMAL 01/11/2025 7:17 AM T [facility] WBC MORPHOLOGY NORMAL 01/11/2025 7:17 AM T [facility] LYMPHOCYTES % 41.7 15.8 - 45.0 % 01/11/2025 7:17 AM T [facility] NEUTROPHILS % 41.1(L) 42.1 - 71.9 % 01/11/2025 7:17 AM CDT [facility] MONOCYTES % 10.4 5.7 - 12.5 % 01/11/2025 7:17 AM T [facility] EOSINOPHILS 5.9(H) 0.0 - 5.6 % 01/11/2025 7:17 AM CDT [facility] BASOPHILS 0.7 0.0 - 1.3 % 01/11/2025 7:17 AM CDT [facility] ABS. NEUTROPHILS 2.36 1.40 - 6.00 x10'3/uL 01/11/2025 7:17 AM [facility] IMMATURE GRANS % 0.2 0.0 - 0.5 % 01/11/2025 7:17 AM [facility] ABS. LYMPHOCYTES 2.40 0.80 - 4.70 x10'3/uL 01/11/2025 7:17 AM [facility] GLUCOSE 100(H) 70 - 99 MG/DL 01/11/2025 8:15 AM [facility] BUN 17 7 - 18 MG/DL 01/11/2025 8:15 AM [facility] CREATININE S/P/B 0.65 0.55 - 1.02 MG/DL 01/11/2025 8:15 AM [facility] SODIUM S/P/B 138 136 - 145 MMOL/L 01/11/2025 8:15 AM [facility] POTASSIUM S/P/B 4.6 3.5 - 5.1 MMOL/L 01/11/2025 8:15 AM [facility] CHLORIDE S/P/B 101 100 - 108 MMOL/L 01/11/2025 8:15 AM [facility] CO2 31.2 21 - 32 MMOL/L 01/11/2025 8:15 AM [facility] CALCIUM S/P/B 9.2 8.5 - 10.1 MG/DL 01/11/2025 8:15 AM [facility] BILIRUBIN TOTAL S/P/B 0.7 0.2 - 1.2 MG/DL 01/11/2025 8:15 AM [facility] TOTAL PROTEIN S/P/B 6.6 6.4 - 8.2 G/DL 01/11/2025 8:15 AM [facility] ALBUMIN S/P/B 3.9 3.4 - 5.0 G/DL 01/11/2025 8:15 AM [facility] AST 20 15 - 37 U/L 01/11/2025 8:15 AM [facility] ALT 26 14 - 55 U/L 01/11/2025 8:15 AM [facility] ALKALINE PHOSPHATASE S/P/B 64 50 - 136 U/L 01/11/2025 8:15 AM [facility] ANION GAP 5.8 5 - 15 MMOL/L 01/11/2025 8:15 AM [facility] BUN CREATININE RATIO 26.2(H) 6 - 26 01/11/2025 8:15 AM [facility] A/G RATIO 1.4 1.0 - 2.0 RATIO 01/11/2025 8:15 AM [facility] GFR ESTIMATE >90 >90 ML/MIN/1. 73 M2 01/11/2025 8:15 AM [facility] Comment: NOTE: eGFR is not calculated for patients <18 years of age. This is an estimated GFR calculation using the new CKD EPI creatinine equation without race and so does not require a correction factor for race. This estimated GFR should not be used for calculating drug doses. TSH 1.126 0.358 - 3.74 uIU/ML 01/11/2025 8:15 AM [facility] Comment: HIGH DOSES OF BIOTIN MAY INTERFERE WITH THIS TEST RESULT. CORRELATION TO CLINICAL HISTORY AND PRESENTATION RECOMMENDED. CHOLESTEROL 211(H) <200.0 MG/DL 01/11/2025 8:15 AM [facility] TRIGLYCERIDES 45 <150 MG/DL 01/11/2025 8:15 AM [facility] HDL 83 >40.0 MG/DL 01/11/2025 8:15 AM [facility] LDL (CALCULATED) 119(H) <100 MG/DL 01/11/2025 8:15 AM CDT [facility] NON HDL CHOLESTEROL 128 <130 MG/DL 01/11/2025 8:15 AM CDT [facility] CHOL/HDL RATIO 2.5 0.0 - 4.5 01/11/2025 8:15 AM CDT [facility] VLDL CALCULATION 9 5 - 55 MG/DL 01/11/2025 8:15 AM CDT [facility] LIPID INTERPRETATION 01/11/2025 8:15 AM CDT [facility] Comment: [facility] CONCENSUS REPORT RECOMMENDATIONS: ADULT CHILD LOW RISK: CHOLESTEROL <200 <170 TRIGLYCERIDE <150 --- HDL >=60 --- LDL <100 <110 BORDERLINE: CHOLESTEROL 200-239 170-199 TRIGLYCERIDE 150-199 --- HDL 40-59 --- LDL 100-159 110-129 HIGH RISK: CHOLESTEROL >=240 >=200 TRIGLYCERIDE >=200 --- HDL <40 --- LDL >=160 >=130 01/11/2025 12:0 1 AM CDT Sunny Yepez MD LABORATORY Final Result [facility] [address] [place] [address], * HEMOGLOBIN, GLYCOSYLATED (01/11/2025 12:01 AM CDT) HGB A1C 5.5 <5.7 % 01/11/2025 8:06 AM CDT [facility] Comment: INCREASED RISK OF DIABETES <5.7% NON-DIABETES 5.7-6.4% INCREASED RISK FOR FUTURE DIABETES > OR = 6.5 CONSISTENT WITH DIABETES STANDARDS OF MEDICAL CARE IN DIABETES-2010 DIABETES CARE, 33(SUPP 1): S1-S61,2010 ESTIMATED AVG GLUCOSE 111 mg/dL 01/11/2025 8:06 AM CDT [facility] 01/11/2025 12:0 1 AM CDT Sunny Yepez MD LABORATORY Final Result [facility] [address] [place] [address], [place] [phone] * MG SCREENING W SHAMIR RAYA DIGI [...] significant change from the prior exam. Chelle Almaguer MD MAMMO Final Re sult * BONE [...] VE NON-REACTI VE 07/08/2018 3:32 PM CDT [facility] HEP B CORE TOTAL AB NON-REACTI VE NON-REACTI VE 07/08/2018 5:57 PM CDT [facility] HEP B SURFACE AB NON-REACTI VE 07/08/2018 5:57 PM CDT [facility] HAV IGM NON-REACTI VE NON-REACTI VE 07/08/2018 5:57 PM CDT [facility] HEPATITIS C AB NON-REACTI VE NON-REACTI VE 07/08/2018 5:57 PM CDT [facility] 07/08/2018 7:18 AM CDT 07/08/2018 8:24 AM CDT us Generic Conversion Md POP LABORATORY Final R esult [facility] [address] [place] [address], from Last 3 Months or Most Recently Relevant to Health Maintenance Additional Health Concerns Infection Onset Date Last Indicated C. difficile 04/27/2024 05/22/2024 Insurance [facility] [place] [phone] Care Teams Labor Relations Manager Relationship Specialty Start Date End Date Chelle Vela MD [address] [place] [phone] PCP - General FAMILY PRACTICE 03/08/21
--- OUTSIDE RECORDS SUMMARY | 2025-03-18 17:47 | XMS_ITS | Clinical Summary ---
Author Organization [facility] Address [address] [place] [address] Care Team Providers Care Leather Roller Name Role Phone Chelle Vela MD Primary [...] Description 03/03/2025 7:45 AM CDT Procedure visit [facility] EP AT [address] [place] [address] Syncope, unspecified syncope type (Primary Dx); Presence of cardiac device 02/15/2025 External Device Data [facility] ABSTRACTION Provider, Abstract 01/31/2025 9:15 AM CDT Procedure visit [facility] EP AT [address] [place] [phone] Syncope, unspecified syncope type (Primary Dx); Presence of cardiac device 12/31/2024 7:45 AM CDT Procedure visit [facility] EP AT [address] [place] [address] Syncope, unspecified syncope type (Primary Dx); Presence [...] Former Cigarettes 0.5 5 1 975 - 5441 Tobacco Cessation:Counseling Given: Not Answered Alcohol Use [...] Comments Blood Pressure 112/64 10/22/2024 9:13 AM [facility] Pulse 76 10/22/2024 9:13 AM [facility] Temperature 36.3 C (97.3 F) 11/09/2021 9:45 AM [facility] Respiratory Rate - - Oxygen Saturation 99% 10/22/2024 9:13 AM [facility] Inhaled Oxygen Concentration - - Weight 59 kg (130 lb) 10/22/2024 9:13 AM [facility] Height 168.9 cm (5' 6.5) 10/22/2024 9:13 AM [facility] Body Mass Index 20.67 10/22/2024 9:13 AM [facility] Plan of Treatment Upcoming Encounters Date Type Department Care Team (Late st Contact Info) Description 04/03/2025 8:00 AM CDT Procedure visit [facility] EP AT [address] [place] [address] 05/04/2025 7:15 AM CDT Procedure visit [facility] EP AT [address] [place] [address] 10/28/2025 9:30 AM [facility] Office Visit [facility] Vascular - [facility] [address] [place] [id number] El Yañez MD [address] [place] [address] Health Maintenance Due Date Last [...] Screening 06/25/2033 Medical Devices Implanted Type Area Area Director Device Identifier Shelf Expiration Date Model / Serial / Lot Monitor Heart Linq Ii Icm Reveal Cardiac [id number] - [id number] Implanted:Qt y: 1 on 12/11/2021 by Alcon Vines MD at [facility] Cardiovascular Device Left: Chest [employer]- CARD RHYTHM MGMT 03/14/2023 [id number] / [id number] / Procedures Procedure Name Priority Date/Time Associated Diagnosis Comments ME REM INTERROG SCRMS <30 D PHYS/QHP Routine 03/03/2025 2:42 PM CDT Syncope, unspecified syncope type Presence of cardiac device ME REM INTERROG SCRMS <30 D PHYS/QHP Routine 01/31/2025 2:57 PM CDT Syncope, unspecified syncope type Presence of cardiac device ME REM INTERROG SCRMS <30 D PHYS/QHP Routine 12/31/2024 2:42 PM CDT Syncope, unspecified syncope type Presence of cardiac device from Last 3 Months Results * ME REM INTERROG SCRMS <30 D PHYS/QHP (03/03/2025 2:42 PM CDT) Only the most recent of3 resultswithin the time period is included. 03/03/2025 2:42 PM CDT Narrative INTERFACE SYSTEM - 03/04/2025 7:26 AM CDT Loop recorder Transmission: 31 day summary report: 01/31/2025 - 03/03/2025 Presenting Rhythm: Sinus Rhythm No episodes noted. Results sent via [employer] Procedure Note Provider, Historical - 03/04/2025 Loop recorder Transmission: 31 day summary report: 01/31/2025 - 03/03/2025 Presenting Rhythm: Sinus Rhythm No episodes noted. Results sent via [employer] us El Yañez MD CARDIAC SERVICES ORDERABLES E dited Result - Final INTERFACE SYSTEM Refer to clinic/hospital department from Last [address] [place] [id number] Advance Directives For more information, please contact: [phone] * Full Code (Latest Code Status on File) Date Activated Date Inactivated Comments 12/11/2021 1:25 PM 12/11/2021 5:00 PM Care Teams Leather Roller Relationship Specialty Start Date End Date Chelle Vela MD [address] [place] [phone] PCP - General Family Practice 06/05/21
[2025-03-18 17:59] VITALS: BP 115/68; PULSE 66; RESP 18; TEMP 36.3; O2SAT 98
== END 2025-03-18 18:03 | disposition home or self-care (01) ==
LOC: ANHED 17:46
PROVIDERS: Emergency Provider Emergency Medicine
DX: S92.354A Nondisplaced fracture of fifth metatarsal bone, right foot, initial encounter for closed fracture (principal); W18.49XA Other slipping, tripping and stumbling without falling, initial encounter
CPT/HCPCS: 73630; 99284; A9270